=== PATIENT | male | born 1935 | race African-American/Black ===

== ENCOUNTER 2021-03-29 12:27 | Emergency (ER) | payer OTHER ==
[~2021-03-29] VITALS: Ht 167.6 cm; Wt 62.6 kg
[2021-03-29] MEDS ORDERED: COZAAR25 MG (12:39)
[2021-03-29] MEDS ORDERED: CIPRO500 MG PO (22:06)
[2021-03-29] MEDS ORDERED: INTESTINEX680 M1 PO (22:06)
== END 2021-03-29 22:14 | disposition home or self-care (01) ==
LOC: ER 12:27
DX: R10.84 Generalized abdominal pain (principal)

== ENCOUNTER 2021-05-14 10:33 | Emergency (ER) | payer OTHER ==
[~2021-05-14] VITALS: Ht 167.6 cm; Wt 65.8 kg
[~2021-05-14 10:33] MED LIST: CIPRO500 MG PO; COZAAR25 MG; INTESTINEX680 M1 PO
[2021-05-14] MEDS ORDERED: GLUMETZA500 MG PO (10:59)
[2021-05-14] MEDS ORDERED: TOPROL XL25 M1 PO (10:59)
[2021-05-14] MEDS ORDERED: REMINYL8 MG PO (11:00)
[2021-05-14] MEDS ORDERED: COZAAR50 MG PO (11:00)
[2021-05-14] MEDS ORDERED: PROTONIX40 M1 PO (11:00)
[2021-05-14] MEDS ORDERED: TERAZOSIN HCL5 MG PO (11:01)
[2021-05-14] MEDS ORDERED: ATORVASTATIN CA10 MG PO (11:01)
== END 2021-05-14 16:52 | disposition home or self-care (01) ==
LOC: ER 10:33
DX: R10.84 Generalized abdominal pain (principal)